=== PATIENT | female | born 1955 | race Caucasian/White ===

== ENCOUNTER 2020-05-24 08:27 | Outpatient (CLI) | payer OTHER, SELFPAY ==
--- NOTE | ~2020-05-24 | MM_ITS ---
EXAMINATION: MM screening deloris BI w yadi HISTORY: Screening mammogram TECHNIQUE: Craniocaudal and mediolateral oblique 3-D tomosynthesis images were obtained and synthetic 2-D images were generated. CAD analysis was submitted and interpreted. COMPARISON: 03/16/2019, 03/14/2018, 03/11/2017 bilateral digital screening mammogram examinations BREAST PARENCHYMAL COMPOSITION: There are scattered areas of fibroglandular density. FINDINGS: There is no evidence of suspicious mass, calcification, or architectural distortion to sugg est malignancy in either breast. There has been no suspicious interval change. IMPRESSION: 1. No mammographic evidence of malignancy. 2. Recommend routine screening mammography in one year. BI-RADS Category 1: Negative Reviewed, dictated and finalized at location A. 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
== END 2020-05-24 08:28 | disposition home or self-care (01) ==
LOC: ANHIMG 08:29
PROVIDERS: PCP Family Medicine; Visit Provider Obstetrics & Gynecology
DX: Z12.31 Encounter for screening mammogram for malignant neoplasm of breast (principal)
CPT/HCPCS: 77063; 77067

== ENCOUNTER 2021-08-11 11:33 | Outpatient (CLI) | payer OTHER, SELFPAY ==
--- NOTE | ~2021-08-11 | US_ITS ---
EXAMINATION: US abdomen complete EXAM DATE: 08/11/2021 12:53 INDICATION: Upper abdominal tenderness. TECHNIQUE: Multiple grayscale and Doppler images of the complete abdomen were obtained (by a technolo gist who performed the scan) and subsequently reviewed. There is no prior study for comparison. FINDINGS: The abdominal aorta is normal in caliber. Visualized portion IVC is patent. The pancreatic head a nd body are normal in appearance. The pancreatic tail is not visualized. There is echogenic liver parenchyma, hepatic steatosis. There are no focal liver lesions identified. There is no evidence of intrahepatic biliary duct dilation. Portal venous flow was seen in the he patopedal, normal direction and has normal Doppler waveform. Common bile duct measures 5 mm, which is normal. The gallbladder wall is normal in thickness, with ex pected amount of distention. No sonographic evidence of pericholecystic fluid. There is 5 mm choleli thiasis or less likely small polyp. Technologist performing exam reports patient did not demonstrate sonographic Valentin's sign. Please note that this sign is less reliable in patients who have receive d pain medication. Right kidney: There is normal contour and echogenicity. It measures 11.4 x 4.8 x 5.2 centimeters. There are no focal renal lesions identified. There is no hydronephrosis. Left kidney: There is normal contour and echogenicity. It measures 11.8 x 6.1 x 4.8 centimeters. Th ere is 1 cm cyst. There is no hydronephrosis. The spleen measures 9.8 centimeters and is morphologically normal. IMPRESSION: 1. Small cholelithiasis or polyp. 2. Hepatic steatosis. Reviewed, dictated and finalized at location B.
[2021-08-11 13:28] LABS: Basophils Absolute Auto 0.1 K/mm3 (0.0-0.1); Basophils Percent Auto 0.9 % (0.2-1.2); Eosinophils Absolute Auto 0.1 K/mm3 (0-0.3); Eosinophils Percent Auto 0.9 % (0-4.4); Hematocrit 42.8 % (37.0-47.0); Hemoglobin 13.5 g/dL (12.0-15.0); Immature Granulocyte Absolute 0.03 K/mm3 (0.00-0.031); Immature Granulocyte Percent A 0.4 % (0-0.5); Lymphocytes Absolute Auto 1.92 K/mm3 (0.9-3.2); Lymphocytes Percent Auto 27.6 % (18.3-44.2); Mean Corpuscular HGB Conc 31.5 g/dl (32-36); Mean Corpuscular Hemoglobin 28.4 pg (26-34); Mean Corpuscular Volume 90.1 fl (80-100); Mean Platelet Volume 9.3 fl (7.4-10.4); Monocytes Absolute Auto 0.6 K/mm3 (0.1-0.6); Monocytes Percent Auto 8.5 % (2.6-8.5); Neutrophils Absolute Auto 4.3 K/mm3 (1.3-6.7); Neutrophils Percent Auto 61.7 % (45.5-73.1); Platelet Count Result 329 k/mm3 (150-375); Red Blood Count 4.75 M/mm3 (4.2-5.4); Red Cell Distribution Width 14.3 % (11.5-14.5)
[2021-08-11 13:29] LABS: Bilirubin Urine Negative (Negative); Blood Urine Negative (Negative); Color Urine Yellow (Yellow); Glucose Urine UA Negative (Negative); Ketones Urine Negative (Negative); Leukocyte Esterase Ur Negative LEU/UL (NEGATIVE); Nitrate Urine Negative (Negative); Protein Urine Negative (Negative); Specific Grav Ur >= 1.030 (1.001-1.035); Urobilinogen Urine 0.2 mg/dL (<2.0); pH Urine 5.5 (5.0-9.0)
[2021-08-11 13:32] LABS: Add Urine Microscopic? YES; Appearance Urine Sl Cloudy (Clear); Mucus Urine Heavy /lpf; Squamous Epithelial Cell Urine Moderate /hpf (Few); WBC Urine 0-3 /hpf (0-3)
[2021-08-11 13:41] LABS: Amylase 82 U/L (30-110); Cholesterol 208 mg/dL (0-200); HDL Direct 54 mg/dL; Lipase 105 U/L (23-300); Triglycerides 288 mg/dL (<150)
[2021-08-11 13:43] LABS: Alanine Aminotransferase 15 U/L (4-35); Albumin Level 4.2 g/dL (3.5-5.1); Alkaline Phosphatase 57 U/L (38-126); Anion Gap 8 mmol/L (8-16); Aspartate Amino Transferase 24 U/L (14-36); Bilirubin,Total 0.3 mg/dL (0.2-1.3); Blood Urea Nitrogen 20 mg/dL (7-17); Carbon Dioxide 27 mmol/L (22-30); Chloride 103 mmol/L (98-107); Estimated Glomerular Filt Rate > 60; Glucose 86 mg/dL (65-110); Potassium 4.5 mmol/L (3.4-5.0); Sodium 138 mmol/L (137-145)
[2021-08-11 13:52] LABS: LDL Cholesterol Direct 100 mg/dL
[2021-08-13 06:37] LABS: GGT 17 U/L (3-65)
== END 2021-08-11 11:34 | disposition home or self-care (01) ==
PROVIDERS: PCP Family Medicine; Visit Provider Family Medicine
DX: R10.9 Unspecified abdominal pain (principal); E78.2 Mixed hyperlipidemia; K76.0 Fatty (change of) liver, not elsewhere classified
CPT/HCPCS: 36415; 76700; 80053; 80061; 81001; 82150; 82977; 83690; 85025

== ENCOUNTER 2021-08-18 11:09 | Outpatient (CLI) | payer OTHER, SELFPAY ==
--- NOTE | ~2021-08-18 | NM_ITS ---
EXAMINATION: NM hepatobiliary wo pharm DATE: 08/18/2021 13:38 INDICATION: Unspecified abdominal pain. COMPARISON: CT abdomen and pelvis 11/23/2011, ultrasound 08/11/2021 TECHNIQUE: 5.2 mCi Tc-99m mebrofenin (Choletec) was administered intravenously. Scintigraphic images of the abdomen were obtained for one hour. Then, the patient drank 8 oz Ensure, and imaging was cont inued for 60 minutes. FINDINGS: There is normal clearance of radiotracer from the blood pool. There is homogeneous tracer u ptake by the liver. Activity progresses to the bowel and gallbladder. Gallbladder ejection fraction (GBEF) was 20%. Note that with this technique, normal GBEF >= 33%. IMPRESSION: 1. Low gallbladder ejection fraction, consistent with gallbladder dysfunction and/or chronic cholecy stitis. Reviewed, dictated and finalized at location B. IMPRESSION: 1. Low gallbladder ejection fraction, consistent with gallbladder dysfunction and/or chronic cholecystitis.
== END 2021-08-18 11:10 | disposition home or self-care (01) ==
LOC: ANHIMG 11:19
PROVIDERS: PCP Family Medicine; Visit Provider Family Medicine
DX: R93.2 Abnormal findings on diagnostic imaging of liver and biliary tract (principal); R10.9 Unspecified abdominal pain
CPT/HCPCS: 78226; A9537

== ENCOUNTER 2021-09-09 07:41 | Outpatient (CLI) | payer OTHER, SELFPAY ==
--- NOTE | 2021-09-09 07:58 | ECG_ITS ---
Measurements Intervals [place] Rate: 85 P: 14 WV: 148 QRS: 16 QRSD: 89 T: 25 QT: 356 QTc: 424 Interpretive Statements SINUS RHYTHM DELAYED PRECORDIAL R/S TRANSITION BASELINE ARTIFACT- I, II, III, AVR, AVL, AVF BORDERLINE ECG Electronically Signed On 09-09-2021 8:15:01 CDT by Jameson Hernandez D.O.
== END 2021-09-09 07:42 | disposition home or self-care (01) ==
PROVIDERS: PCP Family Medicine; Visit Provider Surgery
DX: K80.10 Calculus of gallbladder with chronic cholecystitis without obstruction (principal); Z01.818 Encounter for other preprocedural examination; R94.31 Abnormal electrocardiogram [ECG] [EKG]
CPT/HCPCS: 36415; 86850; 86900; 86901; 93005

== ENCOUNTER 2021-09-11 01:33 | Day surgery (SDC) | payer OTHER, SELFPAY ==
[2021-09-08 12:18] VITALS: BMI 29.0
--- NOTE | 2021-09-08 12:20 | PC.NURSE ---
Report to the Outpatient Waiting Room, entrance under the green pavilion located off [facility], at time _1000_ on date _[id number]_. OR Time: _1200_. - You and your visitor will be asked a series of questions to screen for COVID 19 for your protection. - Only one visitor is allowed at this time. - The patient visitor is requested to leave or wait in car when not with patient. - A mask is required within the hospital. Patients may have clear liquids (water, carbonated beverages, clear teas, apple juice) until 3 hours prior to surgery with a maximum of 20 ounces. - No food from midnight until time of surgery Take the following medications with a SIP of water the morning of surgery: ____Paroxetene Medications to discontinue per physician __All vitamins and supplements Date to take last dose__Stop now.___ Please no make-up, nail vietnamese, hairspray, perfume, deodorant, or body powder the day of surgery. No jewelry (including any body piercings) or valuables the day of surgery, leave them at home. Please take a shower or bath the morning of, surgery with an antibacterial soap (Hebiclense or Chlorhexadine gluconate. Wear comfortable, loose fitting clothing. Children are encouraged to wear pajamas. - Jewelry must be removed prior to entering the operating room. Rings and piercings that are not removed may be cut off. - The hospital will not accept responsibility for valuables. - Please leave all valuables, including medications, at home the day of surgery. If you are going home after surgery, a licensed star route mail driver must drive you home. - NO public transportation without another adult. - We recommend that an adult stay with you for 24 hours following discharge. - We also recommend that you do not drive, make important decision, drink alcoholic beverages, or take any drugs that were not prescribed by your health care provider for at least 24 hours after your discharge time. For Pediatric surgeries, we recommend two adults accompany the child home (only one inside the building at this time). Follow any additional instructions given to you from your surgeon. If you or anyone in your household have experienced Covid symptoms in the past week, please notify your surgeon or the nurse liaison at the phone number below for possible testing. Telephone instructions given to __Patient___and asked if any additional questions and then verbalized understanding. Patient advised to call surgeon office or pre surgery nurse liaison [phone] if any additional questions.
[2021-09-11] VITALS (9 sets, daily range): BP systolic 128–145; BP diastolic 56–78; PULSE 75–95; RESP 15–20; TEMP 36–36.3; O2SAT 93–99
[2021-09-11] MEDS: ACETAMINOPHEN 500 MG TABLET 1000 MG PO (10:18)
--- NOTE | 2021-09-11 10:37 | WPDANESEPPF ---
Anes - Initial Pre Proc Eval Procedure: Operation Date: 09/11/21 12:00 Proposed Procedures p Laparoscopic Cholecystectomy - Thelma Holliday MD Date/Time: 09/11/21 10:37 Surgeon: Thelma Holliday MD Pre Op Diagnosis: Chronic Cholecystitis with Stones Patient Data Age: 66 Gender: F Height: 1.7 m Weight: 83.7 kg Last Vital Signs Temp 36.0 C L 09/11/21 09:57 Pulse 95 09/11/21 09:57 Resp 16 09/11/21 09:57 BP 135/78 09/11/21 09:57 Pulse Ox 99 09/11/21 09:57 Allergies Allergy/AdvReac Type Severity Reaction Status Date / Time clarithromycin Allergy Mild Abdominal Verified 09/11/21 10:12 Pain nitrofurantoin Allergy Mild Muscle Pain Verified 09/11/21 10:12 Penicillins Allergy Mild Dermatitis Verified 09/11/21 10:12 Home Medications Medication Instructions Recorded Confirmed Type aspirin 81 mg tablet,delayed 81 mg PO DAILY 03/15/19 09/11/21 History release lysine 500 mg tablet 500 mg PO DAILY 03/15/19 09/11/21 History fluticasone furoate 100 1 inh INHALATION DAILY #60 ea 09/03/20 09/11/21 Rx mcg-vilanterol 25 mcg/dose inhalation powder paroxetine HCl 20 mg tablet 20 mg PO QAM tablet 09/25/20 09/11/21 History albuterol sulfate 90 mcg/actuation 2 inh INHALATION Q4H PRN #18 g 03/05/21 09/08/21 Rx aerosol inhaler rabeprazole 20 mg tablet,delayed 20 mg PO DAILY #90 tablet 07/09/21 09/11/21 Rx release ascorbic acid (vitamin C) 500 mg 500 mg PO DAILY 08/25/21 09/11/21 History capsule cholecalciferol (vitamin D3) 25 25 mcg PO DAILY 08/25/21 09/11/21 History mcg (1,000 unit) capsule estradiol 2 mg tablet 2 mg PO DAILY 08/25/21 09/11/21 History magnesium 250 mg tablet 500 mg PO DAILY 08/25/21 09/11/21 History multivitamin 1 tablet PO DAILY 08/25/21 09/11/21 History potassium 99 mg tablet 99 mg PO DAILY tablet 08/25/21 09/11/21 History turmeric 400 mg capsule 400 mg PO QAM 08/25/21 09/11/21 History vit A 1,000 unit-C 60 mg-E 30 1 tablet PO QAM 08/25/21 09/11/21 History unit-zinc oxid-selenium AA-copper tablet vitamin A 2,400 mcg capsule 2,400 mcg PO DAILY 08/25/21 09/11/21 History fenofibrate 160 mg tablet 160 mg PO DAILY #90 tablet 09/03/21 09/11/21 Rx montelukast 10 mg PO QAM 09/08/21 09/11/21 History Patient hx anesthesia problems: none Family hx anesthesia problems: none Results Review: All pre-operative results and documents have been reviewed as part of the pre-operative evaluation. REPLACED BY [facility] Past Medical History Medical History Acute abdominal pain (~08/08/21) upper abdominal pain and tenderness. Abdominal ultrasound unremarkable kept for fatty 08/11/2021 with normal amylase 84 lipase 105 and normal liver enzymes. hepatobiliary scan 08/18/2021 with ejection fraction low at 20% with possible biliary dysfunction. Asthma Benign paroxysmal positional vertigo due to bilateral vestibular disorder BMI 29.0-29.9,adult Chronic anxiety Chronic sinusitis Chronic thoracic back pain Colon cancer screening Cologuard negative Fever blister Frontal headache Hypersomnia Insomnia Overweight (BMI 25.0-29.9) Rhinitis TIA (transient ischemic attack) Surgical History Surgical History History of partial hysterectomy [place] teeth extracted Family History Family History Father Family history of malignant neoplasm Patient's father is , Onset Age: 48 Sibling Patient's sister is , Onset Age: 21 Breast cancer Hodgkins disease Grandparent Breast cancer Social History Social History Smoking packs per day: 4 Smoking cigarettes per day: 80.0 Years smoked: 20 Smoking pack-years: 80.00 Smoking status: Former smoker Tobacco type: cigarettes Smoking end date: 09/08/98 Alcohol intake: former Substa
[2021-09-11] MEDS: LACTATED RINGERS 1,000 ML 30 ML IV CONT ×2 (10:46→12:48)
[2021-09-11] MEDS: KETOROLAC 15 MG/ML VIAL (*BKC) IV PUSH (10:46)
--- NOTE | 2021-09-11 11:51 | WPDHPUPDATE1 ---
History and Physical Update Update Date/Time: 09/11/21 11:51 History and Physical has been reviewed, including an updated exam of the patient. There are NO changes in the patient's condition. Risks, benefits, and alternatives have been discussed and questions answered. Patient agrees to proceed with procedure.
[2021-09-11] MEDS: ceFAZolin 2 GM/D5W 50 ML 2 GM/50 ML BAG IVPB (11:57)
[2021-09-11] MEDS: LIDO 1%/EPINEPHRINE/PF 1:200,000 30 ML VIAL XX (12:24)
--- NOTE | 2021-09-11 12:43 | W.PM.PROC2 ---
Procedure Note - Detailed Date of Procedure 09/11/21 Pre-op Diagnosis Chronic Cholecystitis with Stones Post-op Diagnosis Same Procedure Performed Laparoscopic cholecystectomy Surgeon Thelma Holliday MD Anesthesia General Indications 66 y/o F presenting c chronic cholecystitis, cholelithiasis Findings chronic cholecystitis Description of Procedure The patient was taken to the operating room placed in the supine position. After adequate induction of general anesthesia, the patient was prepped and draped in normal sterile fashion. A time-out was then performed to verify the patient's identity as well as the procedure being performed. I then made a 5 mm incision in the infraumbilical region. Through this, a Veress needle was placed into the peritoneal cavity and CO2 gas was then insufflated. After adequate pneumoperitoneum was achieved, the Veress needle was removed and a 5 mm optiview trocar was placed through this incision under direct visualization. I then placed the laparoscope through this trocar site and under direct visualization placed a further 12 mm subxiphoid port as well as 2 additional 5 mm ports in the right upper abdomen. The gallbladder was then identified and was noted to be moderately inflamed and distended. I was able to place a grasper at the dome of the gallbladder and this was retracted anterior and cephalad up over the liver. A 2nd retractor was then placed at the infundibulum and retracted laterally, this allowed visualization of the triangle of Calot. I then was able to visualize the cystic duct in its entirety from its proximal insertion into the gallbladder, to its distal junction with the common hepatic/common bile duct junction. At this point, I carefully skeletonized the proximal cystic duct with the [place] dissector. I then clipped and transected the proximal cystic duct. Next I visualized the cystic artery. Again the artery was skeletonized, clipped, and transected. I then used the Bovie cautery to take down the peritoneal attachments of the gallbladder off the liver bed. This was somewhat difficult given the amount of inflammation in the posterior space. Of note a small bleeder was encountered in the posterior space and controlled with both clip and cautery. Once the gallbladder specimen was completely detached, an endo-pouch was placed through the 12 mm port site. I then placed the gallbladder specimen into the Endo pouch and removed the endo-pouch from the 12 mm port site. The specimen will now be sent to pathology for further review. I then copiously irrigated the right upper quadrant. Some mild oozing was noted in the liver bed and this was controlled with the bovie cautery. Hemostasis was noted in the liver bed, the clips were noted to be in good position on both the cystic duct stump and the cystic artery stump. No other pathology was noted in the right upper quadrant. I then moved the laparoscope to the subxiphoid port. No iatrogenic injury or other pathology was noted in the lower abdomen. I then closed the 12 mm trocar site under direct visualization using the Sergio cone and 0 Vicryl suture. At this point, the abdomen was desufflated and all ports removed. All port sites were then closed with 4.O Monocryl subcuticular sutures. Dermabond was placed on each incision. The patient tolerated the procedure well, was extubated in the operating room postoperative and will be transferred to the recovery room in stable condition Estimated Blood Loss 20 Drains No Packing No Pathology Yes Complications No immediate complications Condition Stable Disposition PACU
[2021-09-11] MEDS: ONDANSETRON INJ 4 MG/2 ML VIAL IV PUSH (13:43)
[2021-09-11] MEDS: oxyCODONE HCL (*CRX) 5 MG TAB IR PO (14:21)
== END 2021-09-11 14:30 | disposition home or self-care (01) ==
PROVIDERS: PCP Family Medicine; Visit Provider Surgery
PROC: 0FT44ZZ Resection of Gallbladder, Percutaneous Endoscopic Approach (ICD-10-PCS; CPT 47562; principal; 2021-09-11 12:00)
DX: K80.10 Calculus of gallbladder with chronic cholecystitis without obstruction (principal); J45.909 Unspecified asthma, uncomplicated; K21.9 Gastro-esophageal reflux disease without esophagitis; Z79.51 Long term (current) use of inhaled steroids; Z79.82 Long term (current) use of aspirin; Z86.73 Personal history of transient ischemic attack (TIA), and cerebral infarction without residual deficits; Z87.891 Personal history of nicotine dependence
CPT/HCPCS: 47562; 88304; A9270; J0690; J1100; J1885; J2405; J2704; J2710; J3010; J7030; J7120

== ENCOUNTER 2022-06-30 09:11 | Outpatient (CLI) | payer OTHER, SELFPAY ==
--- NOTE | ~2022-06-30 | US_ITS ---
Abdominal Sonogram: Real-time sonographic imaging of the abdomen was performed. Clinical History: Left upper quadrant pain Findings: The liver appears echogenic, with no evidence of bile duct dilatation. There is a 2.9 x 2. 6 x 2.6 and a hypoechoic area near the gallbladder fossa, likely focal fatty sparing. Main portal vei n demonstrates normal direction of flow. The spleen is normal in size without evidence of focal lesio n. The gallbladder is absent, compatible prior cholecystectomy. The common bile duct measures 4 mm. The visualized pancreas, aorta, and IVC are unremarkable. The right kidney measures 11.4 cm in rashaun th and the left kidney measures 11.7 cm. There is no hydronephrosis or renal calculus. Impression: Diffuse fatty infiltration of liver. Probable focal area of fatty sparing adjacent to the gallbladder fossa. Pre and postcontrast MR shoul d be considered to further confirm this. Reviewed, dictated and finalized at [facility]. 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 Probable focal area of fatty sparing adjacent to the gallbladder fossa. Pre and postcontrast MR should be considered to further confirm this.
== END 2022-06-30 09:12 | disposition home or self-care (01) ==
PROVIDERS: PCP Family Medicine; Visit Provider Nurse Practitioner Family
DX: R10.12 Left upper quadrant pain (principal); K76.0 Fatty (change of) liver, not elsewhere classified; R11.0 Nausea; Z90.49 Acquired absence of other specified parts of digestive tract
CPT/HCPCS: 76700

== ENCOUNTER 2022-07-20 12:16 | Outpatient (CLI) | payer OTHER, SELFPAY ==
--- NOTE | ~2022-07-20 | MR_ITS ---
EXAMINATION: MR abdomen wo/w con DATE: 07/20/2022 14:06 INDICATION: Hypoechoic hepatic lesion on prior ultrasound TECHNIQUE: Magnetic resonance imaging (MRI) of the abdomen was performed without and with 17 mL Multi arianna intravenous contrast. Sequences included coronal T2-weighted SS-FSE, coronal and axial FS 2D-F IESTA, axial STIR FSE, axial T2-weighted SS-FSE, axial T2-weighted FS SS-FSE, axial diffusion-weighte d SE, axial dual-echo T1-weighted FSPGR, and axial and coronal T1-weighted LAVA. Postcontrast axial T 1-weighted LAVA images were obtained in a time course. Postcontrast coronal T1-weighted LAVA images w ere obtained. COMPARISON: Ultrasound dated 06/22/2022 FINDINGS: Heart size is normal. No pericardial or pleural effusion. Gallbladder is not visualized and there are foci of susceptibility artifact at the gallbladder fossa likely relate to cholecystectomy clips. The re is prominent diffuse hepatic steatosis with signal loss on opposed phase imaging. No correlate maisha ntified for the hypoechoic lesion of concern on prior ultrasound. Upon review of prior ultrasound arabella ges the lesion lies along side the capsule, indeterminate whether within or along side the liver this could potentially represent artifact of a fluid-filled loop of bowel along side the liver. No intra or extrahepatic biliary ductal dilation. There are a few small T2 hyperintense nonenhancing bilateral renal cysts, the largest on the left measuring up to 1.2 cm. Pancreas, spleen and bilateral adrenal glands are normal. Visualized portion of the bowels are unremarkable. No pathologically enlarged abdo rubina lymphadenopathy. Mild thoracolumbar dextrocurvature with mild spondylosis. Visualized bone marco ow signal is normal throughout. IMPRESSION: 1. Diffuse hepatic steatosis. No correlate identified for the hypoechoic lesion of concern on prior u ltrasound which may have represented artifact of a fluid-filled loop of bowel abutting the liver. 2. Status post cholecystectomy. No intra or extrahepatic biliary ductal dilation. Reviewed, dictated and finalized at location A. IMPRESSION: 1. Diffuse hepatic steatosis. No correlate identified for the hypoechoic lesion of concern on prior ultrasound which may have represented artifact of a fluid- filled loop of bowel abutting the liver. 2. Status post cholecystectomy. No intra or extrahepatic biliary ductal dilatio n.
== END 2022-07-20 12:17 | disposition home or self-care (01) ==
PROVIDERS: PCP Family Medicine; Visit Provider Family Medicine
DX: R93.2 Abnormal findings on diagnostic imaging of liver and biliary tract (principal); K76.0 Fatty (change of) liver, not elsewhere classified; Z90.49 Acquired absence of other specified parts of digestive tract
CPT/HCPCS: 74183; A9577

== ENCOUNTER 2022-07-28 01:53 | Day surgery (SDC) | payer OTHER, SELFPAY ==
[2022-07-16 14:10] VITALS: BMI 29.3
[2022-07-28 06:40] VITALS: BP 135/90; PULSE 91; RESP 18; TEMP 36.5; O2SAT 99; BMI 28.0
[2022-07-28] MEDS: LACTATED RINGERS 1,000 ML 150 ML IV CONT (07:03)
--- NOTE | 2022-07-28 07:55 | WPDANESEPPF ---
Anes - Initial Pre Proc Eval Procedure: Operation Date: 07/28/22 08:00 Proposed Procedures p Colonoscopy - Zeke Schaeffer MD Date/Time: 07/28/22 07:55 Surgeon: Zeke Schaeffer MD Pre Op Diagnosis: positive cologuard Patient Data Age: 66 Gender: F Height: 1.7 m Weight: 81.2 kg Last Vital Signs Temp 97.7 F 07/28/22 06:40 Pulse 91 07/28/22 06:40 Resp 18 07/28/22 06:40 BP 135/90 07/28/22 06:40 Pulse Ox 99 07/28/22 06:40 O2 Del Method Room Air 07/28/22 06:40 Allergies Allergy/AdvReac Type Severity Reaction Status Date / Time clarithromycin Allergy Mild Abdominal Verified 07/28/22 06:46 Pain nitrofurantoin Allergy Mild Muscle Pain Verified 07/28/22 06:46 Penicillins Allergy Mild Dermatitis Verified 07/28/22 06:46 Home Medications Medication Instructions Recorded Confirmed Type aspirin 81 mg tablet,delayed 81 mg PO DAILY 03/15/19 07/28/22 History release (Adult Low Dose Aspirin) lysine 500 mg tablet (L-Lysine) 500 mg PO DAILY 03/15/19 07/28/22 History paroxetine HCl 20 mg tablet (Paxil) 20 mg PO QAM 09/25/20 07/28/22 History ascorbic acid (vitamin C) 500 mg 500 mg PO DAILY 08/25/21 07/28/22 History capsule estradiol 2 mg tablet 2 mg PO DAILY 08/25/21 07/28/22 History magnesium 250 mg tablet 500 mg PO DAILY 08/25/21 07/28/22 History multivitamin 1 tablet PO DAILY 08/25/21 07/28/22 History potassium 99 mg tablet 99 mg PO DAILY 08/25/21 07/28/22 History turmeric 400 mg capsule 400 mg PO QAM 08/25/21 07/28/22 History vitamin A 2,400 mcg capsule 2,400 mcg PO DAILY 08/25/21 07/28/22 History fenofibrate 160 mg tablet 160 mg PO DAILY #90 tabs 09/03/21 07/28/22 Rx albuterol sulfate 90 mcg/actuation 2 inh inhalation Q4-6H PRN 12/15/21 07/28/22 Rx aerosol inhaler shortness of breath or wheezing 90 days #25.5 grams fluticasone furoate 200 1 inh inhalation Q24H #180 ea 03/06/22 07/28/22 Rx mcg-vilanterol 25 mcg/dose inhalation powder (Breo Ellipta) cholecalciferol (vitamin D3) 25 1,000 unit PO DAILY 03/09/22 07/28/22 History mcg (1,000 unit) capsule meclizine 25 mg tablet 25 mg PO TID PRN dizziness #90 tabs 03/09/22 07/28/22 Rx rizatriptan 10 mg disintegrating See Rx Instructions PO .COMPLEX 03/09/22 07/28/22 Rx tablet (Maxalt-[employer]) #30 tabs valacyclovir 1 gram tablet 2,000 mg PO BID PRN fever blister 03/09/22 07/28/22 Rx #40 tabs vit C 250 mg-vit E 90 mg-zinc 40 1 tablet PO BID #180 caps 05/20/22 07/28/22 Rx mg-copper 1 [id number] capsule (PreserVision AREDS-2) dicyclomine 20 mg tablet 20 mg PO TID PRN abdominal pain 06/24/22 07/28/22 Rx #90 tabs montelukast 10 mg tablet See Rx Instructions .Route 06/24/22 07/28/22 Rx .COMPLEX #90 tabs rabeprazole 20 mg tablet,delayed 20 mg PO DAILY #90 tabs 07/20/22 07/28/22 Rx release (AcipHex) Patient hx anesthesia problems: none Family hx anesthesia problems: none Results Review: All pre-operative results and documents have been reviewed as part of the pre-operative evaluation. [facility] Past Medical History Medical History (Updated 07/01/22 @ 07:47 by Keith Ziegler MD) Abnormal ultrasound of liver (06/30/22) 2.9 x 2.6 x 2.6 hypoechoic area near gallbladder fosa on abdominal ultrasound 06/30/2022. Acute abdominal pain (~08/08/21) upper abdominal pain and tenderness. Abdominal ultrasound unremarkable kept for fatty 08/11/2021 with normal amylase 84 lipase 105 and normal liver enzymes. hepatobiliary scan 08/18/2021 with ejection fraction low at 20% with possible biliary dysfunction. Acute non-recurrent maxillary sinusitis Asthma Benign paroxysmal positional vertigo due to bilateral vestibular disorder BMI 28.0-28.9,adult BMI 29.0-29.9,adult Chronic anxiety Chronic sinusitis Chronic thoracic back pain Colon cancer screening Cologuard negative. Cologuard screening 03/10/2022 was positive. COVID-19 (12/11/21) Diarrhea Fever blister Frontal headache Hepatic steat
--- NOTE | 2022-07-28 07:58 | PM.HPGS ---
History of Present Illness History of Present Illness Consent: Risks, benefits, and alternatives have been discussed and questions answered. Patient agrees to proceed with procedure. Chief complaint: positive cologuard Narrative: Lanie Steele is a 66 year old female here for first colonoscopy, had + cologuard Review of Systems Constitutional: Constitutional: Denies headache(s) and Denies weakness Eyes: Eyes: Denies blurry vision ENT: Reports Normal hearing present, Denies headache(s) and Denies neck pain Cardiovascular: Cardiovascular: Denies chest pain and Denies dyspnea Respiratory: Respiratory: Denies dyspnea Gastrointestinal: Gastrointestinal: Reports no additional gastrointestinal complaints Genitourinary: Genitourinary: Denies dysuria Musculoskeletal: Musculoskeletal: Denies neck pain Integumentary/Breasts: Skin/Breast: Denies dry skin Neurologic: Reports Normal hearing present, Denies headache(s) and Denies weakness Psychiatric: Psychiatric: Denies anxiety Endocrine: Endocrine: Denies change in body appearance Hematologic/Lymphatic: Hematologic/Lymphatic: Denies easy bleeding Allergic/Immunologic: Allergic/Immunologic: Denies urticaria PMFSH Past Medical History Medical History (Updated 07/01/22 @ 07:47 by Keith Ziegler MD) Abnormal ultrasound of liver (06/30/22) 2.9 x 2.6 x 2.6 hypoechoic area near gallbladder fosa on abdominal ultrasound 06/30/2022. Acute abdominal pain (~08/08/21) upper abdominal pain and tenderness. Abdominal ultrasound unremarkable kept for fatty 08/11/2021 with normal amylase 84 lipase 105 and normal liver enzymes. hepatobiliary scan 08/18/2021 with ejection fraction low at 20% with possible biliary dysfunction. Acute non-recurrent maxillary sinusitis Asthma Benign paroxysmal positional vertigo due to bilateral vestibular disorder BMI 28.0-28.9,adult BMI 29.0-29.9,adult Chronic anxiety Chronic sinusitis Chronic thoracic back pain Colon cancer screening Cologuard negative. Cologuard screening 03/10/2022 was positive. COVID-19 (12/11/21) Diarrhea Fever blister Frontal headache Hepatic steatosis Hypersomnia Insomnia LUQ abdominal pain Migraine without aura and without status migrainosus, not intractable Nausea Rhinitis TIA (transient ischemic attack) Surgical History Surgical History (Updated 06/24/22 @ 11:07 by Starr Quiroz NP) History of partial hysterectomy Hx laparoscopic cholecystectomy Laparoscopic Cholecystectomy performed 09/11/2021 S/P cholecystectomy Cut Off teeth extracted Family History Family History Father Family history of malignant neoplasm Patient's father is , Onset Age: 48 Sibling Patient's sister is , Onset Age: 21 Breast cancer Hodgkins disease Grandparent Breast cancer Social History Social History (Reviewed 06/24/22 @ 10:33 by Mary Durbin [facility]) Smoking packs per day: 0.5 Smoking cigarettes per day: 10.0 Years smoked: 20 Smoking pack-years: 10.00 Smoking status: Former smoker Tobacco type: cigarettes Smoking end date: 05/03/97 Alcohol intake: never Substance use: never Substance use type: does not use Lack of Transportation: No Lack of Food: Never True Current Housing: I Have Housing Concerned About Future Housing: No Difficulty Paying Gas/Electric Bills: No Difficulty Paying for Meds: No Currently Unemployed: No Education: High School Diploma/GED Difficulty w/ Childcare or Family Care: No Living arrangements: with family Occupation/Education: retired Spiritual care concerns: No Meds Home Medications and Allergies Home Medications Medication Instructions Recorded Confirmed Type aspirin 81 mg tablet,delayed 81 mg PO DAILY 03/15/19 07/28/22 History release (Adult Low Dose Aspirin) lysine 500 mg tablet (L-Lysine) 500 mg PO DAILY 03/15/19 07/28/22 History paroxeti
[2022-07-28 08:36] VITALS: BP 114/71; PULSE 89; RESP 25; O2SAT 95
[2022-07-28 08:46] VITALS: BP 116/71; PULSE 85; RESP 19; O2SAT 96
[2022-07-28 08:56] VITALS: BP 126/68; PULSE 86; RESP 16; O2SAT 100
== END 2022-07-28 09:04 | disposition home or self-care (01) ==
PROVIDERS: PCP Family Medicine; Visit Provider Internal Medicine Gastroenterology
PROC: 0DJD8ZZ Inspection of Lower Intestinal Tract, Via Natural or Artificial Opening Endoscopic (ICD-10-PCS; CPT 45378; principal; 2022-07-28 08:00)
DX: R19.5 Other fecal abnormalities (principal); D12.3 Benign neoplasm of transverse colon; D12.5 Benign neoplasm of sigmoid colon; K64.8 Other hemorrhoids; J45.909 Unspecified asthma, uncomplicated; F41.9 Anxiety disorder, unspecified; Z86.73 Personal history of transient ischemic attack (TIA), and cerebral infarction without residual deficits; Z79.82 Long term (current) use of aspirin; Z79.51 Long term (current) use of inhaled steroids; Z87.891 Personal history of nicotine dependence
CPT/HCPCS: 45385; 88305; J2001; J2704; J7120

== ENCOUNTER → 2024-08-10 11:49 | Outpatient (CLI) | payer MEDICARE, OTHER, SELFPAY ==
--- NOTE | ~2024-08-10 | XR_ITS ---
AP and oblique views of the left ribs, and PA and lateral chest radiographs Clinical History: Pain Findings: No rib fracture is seen. Osseous alignment is anatomic. Lungs are clear, aside from calcifi ed right upper lobe granuloma, without focal consolidation or pleural effusion. Cardiomediastinal con tour is within normal limits. Soft tissues are unremarkable. Impression: No rib fracture is seen. No significant pulmonary abnormality. Reviewed, dictated and finalized at location . Impression: No rib fracture is seen. No significant pulmonary abnormality.
--- OUTSIDE RECORDS SUMMARY | 2024-08-10 12:32 | XMS_ITS | Clinical Summary ---
Author Organization [facility] Address [address] [place] [address] Care Team Providers Care Video Control Operator Name Role Phone Keith Ziegler MD Primary Care Provider [phone] Source Comments [facility],non-owned Affiliates and Associated Physician Practices is amultiple site organization consisting of ambulatory clinics and hospital sitesin [place], [place], [place] and [place]. This disclosure is being madepursuant to the Care Everywhere program and may not contain all information available regarding this patient. Last updated 18.[facility] [employer] Social History Tobacco Use Types Packs/Day Years Used Date Smoking Tobacco: Never Assessed Sex and Gender Information Value Date Recorded Sex Assigned at Not on file Gender Identity Not on file Sexual Orientation Not on file Plan of Treatment Health Maintenance Due Date Last Done Comments BONE DENSITY TESTING 1957 COLOGUARD (AGES 45-75) - COL ON CA SCREENING 1957 COLON MONITORING 1957 COLONOSCOPY - COLON CA SCREENING 1957 CT COLONOGRAPHY - COLON CA SCREENING 1957 Colorectal Cancer Screening 1957 FIT - COLON CA SCREENING 1957 FLEX SIG - COLON CA SCREENING 1957 LIPID TESTING 1957 MAMMOGRAM 1957 HEPATITIS C SCREENING 08/19/1975 DTAP/TDAP/TD VACCINES (1 - Tdap) 1976 PNEUMOCOCCAL VACCINE 50+ (1 of 1 - PCV) 08/24/2007 ZOSTER VACCINE (1 of 2) 08/24/2007 COVID-19 VACCINE (1 - 2023-2 5 season) 2024 DEPRESSION SCREENING 05/03/2024 INFLUENZA VACCINE (Season Ended) 2025 Respiratory Syncytial Virus (RSV) Vaccine Pt: or over 60 yrs (1 - 1-dose 75+ series) 2032 HEPATITIS B VACCINE Aged Out No longe r eligible based on patient's age to complete this topic HIB VACCINE Aged Out No longer eligi ble based on patient's age to complete this topic HPV VACCINE Aged Out No longer eligi ble based on patient's age to complete this topic MENINGOCOCCAL (Group B) VACC INE SHARED DECISION-MAKING Aged Out No longer eligibl e based on patient's age to complete this topic MENINGOCOCCAL GROUPS A/C/Y/W VACCINE Aged Out No longer eligible b ased on patient's age to complete this topic Care Teams Video Control Operator Relationship Specialty Start Date End Date Keith Ziegler MD [address] [address] PCP - General 09/18/21
== END ==
PROVIDERS: PCP Family Medicine; Visit Provider Family Medicine
DX: R07.81 Pleurodynia (principal)
CPT/HCPCS: 71046; 71100

== ENCOUNTER 2024-09-04 07:50 | Outpatient (CLI) | payer MEDICARE, OTHER, SELFPAY ==
--- NOTE | ~2024-09-04 | CT_ITS ---
Clinical Indication: Pleurodynia CT Scan of the Chest and Abdomen without Contrast: Technique: Contiguous sections were acquired throughout the chest and abdomen, without IV contrast ad ministration. Dose reduction technique was used on this scan by utilizing automated exposure control and iterative reconstruction technique. The dose-length product (DLP) was 566.18 mGy-cm. Findings: There is no evidence of any significant mediastinal, hilar or axillary lymphadenopathy. The mediastin al soft tissues appear normal. There is no evidence of pleural or pericardial effusion. The lungs are clear, aside from right upper lobe calcified granuloma. Possible diffuse hepatic steatosis. Cholecystectomy clips are present. The spleen, pancreas, adrenals and kidneys are within normal limits. No evidence of aortic aneurysm. No lymphadenopathy. Visualized bowel loops are unremarkable. No ascites. Impression: No acute abnormality. No definite etiology for chest pain. Probable diffuse hepatic steatosis. Reviewed, dictated and finalized at [facility]. Impression: No acute abnormality. No definite etiology for chest pain. Probable diffuse hepatic steatosis.
--- OUTSIDE RECORDS SUMMARY | 2024-09-04 07:57 | XMS_ITS | Clinical Summary ---
Author Organization [facility] Address [address] [place] [address] Care Team Providers Care Cuff Maker Name Role Phone Keith Ziegler MD Primary Care Provider [phone] Source Comments [facility],non-owned Affiliates and Associated Physician Practices is amultiple site organization consisting of ambulatory clinics and hospital sitesin [place], [place], [place] and [place]. This disclosure is being madepursuant to the Care Everywhere program and may not contain all information available regarding this patient. 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
== END 2024-09-04 07:51 | disposition home or self-care (01) ==
PROVIDERS: PCP Family Medicine; Visit Provider Family Medicine
DX: R07.81 Pleurodynia (principal); R93.89 Abnormal findings on diagnostic imaging of other specified body structures
CPT/HCPCS: 71250; 74150

== ENCOUNTER 2025-04-30 10:06 | Emergency (ER) | payer MEDICARE, OTHER, SELFPAY ==
--- NOTE | ~2025-04-30 | CT_ITS ---
. EXAMINATION: CT facial bones w con DATE: 04/30/2025 13:05 INDICATION: Left facial pain TECHNIQUE: Computed tomography (CT) of the facial bones and maxillofacial region was performed . with 100 mL Omnipaque-350 intravenous contrast. Coronal reconstructions were obtained. Automated exposure control and iterative reconstruction technique were employed. The dose-length product was 415.25 mGy -cm. COMPARISON: None. FINDINGS: No maxillofacial fractures. There is streak artifact associated with multiple bilateral dental restorations. Small periapical lucencies at the posterior most left and right mandibular molars with no erosion through the overlying cortex or evident subperiosteal abscess. Changes of bilateral intraocular lens replacement. Orbits are otherwise normal. Mild mucoperiosteal thickening in the bilateral ethmoid and maxillary sinuses. Bilateral parotid and submandibular glands the visualized thyroid gland are normal. There are multiple mildly prominent but still normal-sized bilateral submandibular and jugular chain lymph nodes. 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 Mastoid air cells and middle ear cavities are clear. Vasculature is unremarkable. Parapharyngeal and prevertebral soft tissues are unremarkable. Normal epiglottis. No abscess or abnormal masses identified. Mild cervical spondylosis. IMPRESSION: 1. Small periapical lucencies at both the left and right posterior most mandibular molars without evident associated cortical erosion or subperiosteal abscesses. 2. Likely reactive bilateral mild submandibular and jugular chain lymphadenopathy. Reviewed, dictated and finalized at location A. [employer] IMPRESSION: 1. Small periapical lucencies at both the left and right posterior most mandibu lar molars without evident associated cortical erosion or subperiosteal abscess es. 2. Likely reactive bilateral mild submandibular and jugular chain lymphadenopat hy.
[2025-04-30 10:11] VITALS: BP 157/81; PULSE 92; RESP 18; TEMP 36.9; O2SAT 100
--- OUTSIDE RECORDS SUMMARY | 2025-04-30 10:31 | XMS_ITS | Patient Health Record ---
Author Organization [facility] [employer] [facility] Address [address] [place] [address] Care Team Providers Care Victorian Literature Professor Name Role Phone Eliecer Seay Unavailable [phone] Reason For Referral No Information Medications Medication SIG (Take, Route, Frequency, Duration) Notes Start Date End Date Status ALPRAZolam 0.25 MG Tablet Oral 08/27/2022 Active busPIRone HCl 7.5 MG Tablet Oral 08/27/2022 Active hydrOXYzine HCl 10 MG Tablet Oral 08/27/2022 Active PARoxetine HCl 30 MG Tablet Oral 08/27/2022 Active QUEtiapine Fumarate 25 MG Tablet Oral 08/27/2022 Active Social History Social History Additional Details Category Social Info Options Details Migrated Social History Migrated Social History Alcohol Intake: None 08/27/2022,Tobacco Years: Former smoker 08/27/2022,Smoking Status: 30 08/27/2022 Plan Of Treatment No Information Insurance Providers Payer Name Payer Address Payer Phone Subscriber Number Group Number Insured Name Patient Relationship to Insured Coverage Start Date Coverage End Date [address] [address] [place] [phone] [id number] ADIN NORRIS Self - patient is the insured Medicare-I l Medicare [address] [place] [address] [id number] ADIN NORRIS Self - patient is the insured Medical (General) History Surgical History Surgery Date(Month/Year) Hysterectomy ([id number]) Removal of gallbladder (38830) Extraction of cataract ([id number])
--- OUTSIDE RECORDS SUMMARY | 2025-04-30 10:31 | XMS_ITS | Clinical Summary ---
Author Organization [facility] Address [address] [address] Care Team Providers Care African Studies Professor Name Role Phone Keith Ziegler MD Primary Care Provider [phone] Source Comments [facility],non-owned Affiliates and Associated Physician Practices is amultiple site organization consisting of ambulatory clinics and hospital sitesin [place], [place], [place] and [place]. This disclosure is being madepursuant to the Care Everywhere program and may not contain all information available regarding this patient. 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
--- OUTSIDE RECORDS SUMMARY | 2025-04-30 12:10 | XMS_ITS | Clinical Summary ---
Author Organization [facility] Address [address] [place] [address] Care Team Providers Care Therapeutic Recreation Director Name Role Phone Keith Ziegler MD Primary Care Provider [phone] Source Comments [facility],non-owned Affiliates and Associated Physician Practices is amultiple site organization consisting of ambulatory clinics and hospital sitesin [place], [place], [place] and [place]. This disclosure is being madepursuant to the Care Everywhere program and may not contain all information available regarding this patient. 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
[2025-04-30 12:27] LABS: Hematocrit 45.0 % (37.0-47.0); Hemoglobin 14.4 g/dL (12.0-15.0); Immature Granulocyte Percent A 0.4 % (0-0.5); Lymphocytes Absolute Auto 1.67 K/mm3 (0.9-3.2); Mean Corpuscular HGB Conc 32.0 g/dl (32-36); Mean Corpuscular Hemoglobin 28.1 pg (26-34); Mean Corpuscular Volume 87.9 fl (80-100); Nucleated Red Blood Cells Absolute Auto 0.000 K/mm3 (0.0-0.012); Nucleated Red Blood Cells Perc 0.0 % (0.0-0.2); Platelet Count Result 304 k/mm3 (150-375); Red Blood Count 5.12 M/mm3 (4.2-5.4); White Blood Count 8.2 K/mm3 (4.5-10.0)
--- NOTE | 2025-04-30 12:46 | ED.GENADULT ---
HPI - General Adult General Chief complaint: Dental/Oral Stated complaint: JAW PAIN, SWELLING, CAN'T OPEN MOUTH HX TMJ Time Seen by Provider: 04/30/25 11:28 History of Present Illness HPI narrative: 69-year-old female present to the emergency department for evaluation for left-sided dental abscess. Patient did have follow-up with her dentist last week and was started on a Z-Darshan then switched to doxycycline and then on Wednesday patient was switched to clindamycin. Patient states that her pain has improved patient is still having some facial swelling. Patient does not have follow-up for dentist until after the holiday. Patient does report history of TMJ and states she does have tightness of the left drawl. His primary complaint is submandibular pain on the left lateral jaw. Patient denies any difficulty breathing or swallowing. Patient is no distress at time of evaluation. Related Data Home Medications ?Medication ?Instructions ?Recorded ?Confirmed ?Last Taken ?Type aspirin 81 mg tablet,delayed 81 mg PO DAILY 03/15/19 02/20/25 09/05/21 History release (Adult Low Dose Aspirin) lysine 500 mg tablet (L-Lysine) 500 mg PO DAILY 03/15/19 02/20/25 09/05/21 History ascorbic acid (vitamin C) 500 mg 500 mg PO DAILY 08/25/21 02/20/25 09/05/21 History capsule magnesium 250 mg tablet 500 mg PO DAILY 08/25/21 02/20/25 09/05/21 History multivitamin 1 tablet PO DAILY 08/25/21 02/20/25 09/05/21 History potassium 99 mg tablet 99 mg PO DAILY 08/25/21 02/20/25 09/05/21 History vitamin A 2,400 mcg capsule 2,400 mcg PO DAILY 08/25/21 02/20/25 09/05/21 History cholecalciferol (vitamin D3) 25 1,000 unit PO DAILY 03/09/22 02/20/25 Unknown History mcg (1,000 unit) capsule Allergies Allergy/AdvReac Type Severity Reaction Status Date / Time clarithromycin Allergy Mild Abdominal Verified 04/30/25 11:34 Pain nitrofurantoin Allergy Mild Muscle Pain Verified 04/30/25 11:34 Penicillins Allergy Mild Dermatitis Verified 04/30/25 11:34 Review of Systems Review of Systems: All systems reviewed & are unremarkable except as noted in HPI and below PMFSH Past Medical History Medical History (Updated 04/30/25 @ 14:20 by Brady Darnell MD) Acute bronchitis Seasonal allergic rhinitis allergy testing was negative Chronic nonallergic rhinitis Positive colorectal cancer screening using Cologuard test COVID-19 (12/11/21) Encounter for surgical aftercare following surgery on the digestive system Acute abdominal pain (~08/08/21) upper abdominal pain and tenderness. Abdominal ultrasound unremarkable kept for fatty 08/11/2021 with normal amylase 84 lipase 105 and normal liver enzymes. hepatobiliary scan 08/18/2021 with ejection fraction low at 20% with possible biliary dysfunction. Colon cancer screening Cologuard negative. Cologuard screening 03/10/2022 was positive. Abnormal ultrasound of liver (06/30/22) 2.9 x 2.6 x 2.6 hypoechoic area near gallbladder fosa on abdominal ultrasound 06/30/2022. Chronic cholecystitis with calculus Postmenopause Rib pain on left side X-ray ribs and chest on 08/10/[address] of the chest and abdomen on 09/04/2024 was unremarkable. Breast cancer screening BMI 26.0-26.9,adult (08/02/22) Polyp of colon (07/28/22) 5 mm Tubular adenoma of the transverse colon, 2 tubulovillous adenoma in the sigmoid colon on 07/28/2022. Nausea Hepatic steatosis Diffuse fatty liver on CT on 09/04/2024. BMI 28.0-28.9,adult Migraine without aura and without status migrainosus, not intractable Acute non-recurrent maxillary sinusitis Diarrhea TIA (transient ischemic attack) Asthma Hypersomnia Insomnia Fever blister Benign paroxysmal positional vertigo due to bilateral vestibular disorder Chronic anxiety BMI 29.0-29.9,adult Chronic sinusitis Frontal headache Rhinitis Chronic thoracic back pain Surgical History Surgical History S/P cholecystectomy Hx laparoscopic cholecystectomy Laparoscopic Cholecystectomy performed 09/11/2021 [place] teeth extracted History of partial hysterectomy Family History Family History Father Family history of malignant neoplasm Patient's father is , Onset Age: 48 Sibling Patient's sister is , Onset Age: 21 Breast cancer Hodgkins disease Grandparent Breast cancer Social History Social History Smoking packs per day: 0.5 Smoking cigarettes per day: 10.0 Years smoked: 20 Smoking pack-years: 10.00 Smoking status: Former smoker Tobacco type: cigarettes Smoking end date: 05/03/97 Alcohol intake: never Substance use: never Substance use type: does not use Lack of Transportation: No Lack of Food: Never True Current Housing: I Have Housing Concerned About Future Housing: No Difficulty Paying Gas/Electric Bills: No Difficulty Paying for Meds: No Currently Unemployed: No Education: High School Diploma/GED Difficulty w/ Childcare or Family Care: No Living arrangements: with family Occupation/Education: retired Spiritual care concerns: No Exam Narrative: APPEARANCE: Well appearing, no pain, no distress, well-nourished. HEAD: normocephalic, atraumatic. EYES: PERRLA/EOMI, conjunctivae clear. NOSE: Normal no drainage EARS:TMS clear with good light reflex. THROAT: Pharynx clear, no exudate. NECK: Left lower mandibular swelling with no erythema, no fluctuance, no midline swelling and no crepitus RESPIRATORY: Airway patent, respirations nonlabored. Clear to auscultation bilaterally, no rales, rhonchi, wheezing. CARDIOVASCULAR: Regular rate and rhythm without murmurs rubs or gallops. ABDOMINAL: Soft, nontender, nondistended, normal bowel sounds MUSCULOSKELETAL: Moves all extremities. Strength/ROM intact, No edema, No calf tenderness. NEURO: Alert. Cranial nerves II through XII intact. Good gait. Good coordination SKIN: Warm, dry. Normal Color Course Vital Signs Vital signs: Vital Signs Temperature 98.5 F 04/30/25 10:11 Pulse Rate 92 04/30/25 10:11 Respiratory Rate 18 04/30/25 10:11 Blood Pressure 157/81 H 04/30/25 10:11 Pulse Oximetry 100 04/30/25 10:11 Oxygen Delivery Room Air 04/30/25 10:11 Temperature 98.5 F 04/30/25 10:11 Pulse Rate 90 04/30/25 14:38 Respiratory Rate 18 04/30/25 14:38 Blood Pressure 132/88 04/30/25 14:38 Pulse Oximetry 99 04/30/25 14:38 Oxygen Delivery Room Air 04/30/25 10:11 [facility] Narrative Medical decision making narrative: 69-year-old female presents to the emergency department for evaluation for left submandibular swelling. Patient has been on multiple antibiotics in this still on clindamycin. Patient is afebrile with no leukocytosis and hemoglobin of 14.4. Patient has no acute abnormalities on her CMP. No external evidence of cellulitis and patient does have some lymphadenopathy but no fluctuance palpated. Patient's CT was ordered and does show some small periapical lucencies without evident associated cortical erosion or subperiosteal abscesses. Patient was updated on the results of workup and patient was comfortable plan for discharge and close follow-up. Patient will be started on additional muscle relaxants to help with the suspected TMJ. Differential Diagnosis Differential Diagnosis: Dental abscess, facial cellulitis, trismus, Lab Data [facility] Lab Attestation statement: I personally reviewed the patient's lab results. 04/30/25 12:21 04/30/25 12:21 Labs: Lab Results 04/30/25 Range/Units 12:21 WBC 8.2 (4.5-10.0) K/mm3 RBC 5.12 (4.2-5.4) M/mm3 Hgb 14.4 (12.0-15.0) g/dL Hct 45.0 (37.0-47.0) % MCV 87.9 (80-100) fl MCH 28.1 (26-34) pg MCHC 32.0 (32-36) g/dl RDW 13.6 (11.5-14.5) % Plt Count 304 (150-375) k/mm3 MPV 8.8 (7.4-10.4) fl Immature Gran % (Auto) 0.4 (0-0.5) % Neut % (Auto) 70.9 (45.5-73.1) % Lymph % (Auto) 20.4 (18.3-44.2) % [place] % (Auto) 6.8 (2.6-8.5) % Eos % (Auto) 0.9 (0-4.4) % Baso % (Auto) 0.6 (0.2-1.2) % Lymph # (Auto) 1.67 (0.9-3.2) K/mm3 [place] # (Auto) 0.6 (0.1-0.6) K/mm3 Eos # (Auto) 0.1 (0-0.3) K/mm3 Baso # (Auto) 0.1 (0.0-0.1) K/mm3 Abs Immat Gran (auto) 0.03 (0.00-0.031) K/mm3 Absolute Neuts (auto) 5.8 (1.3-6.7) K/mm3 Absolute Nucleated RBC 0.000 (0.0-0.012) K/mm3 Nucleated RBC % 0.0 (0.0-0.2) % Sodium 140 (137-145) mmol/L Potassium 4.9 (3.4-5.0) mmol/L Chloride 106 (98-107) mmol/L Carbon Dioxide 24 (22-30) mmol/L Anion Gap 10 (4-12) mmol/L BUN 17 (7-17) mg/dL Creatinine 0.82 (0.7-1.0) mg/dL Estim Creat Clear Calc 64 ml/min Estimated GFR > 60 (59 - ) Glucose 100 (65-110) mg/dL Calcium 9.8 (8.4-10.2) mg/dL Total Bilirubin 0.7 (0.2-1.3) mg/dL AST 35 (14-36) U/L ALT 24 (6-35) U/L Alkaline Phosphatase 112 (38-126) U/L Total Protein 8.5 H (6.3-8.2) g/dL Albumin 4.7 (3.5-5.1) g/dL Imaging Data Radiologist's impression: ITS Impressions Face CT 04/30/25 13:59 IMPRESSION: 1. Small periapical lucencies at both the left and right posterior most mandibular molars without evident associated cortical erosion or subperiosteal abscesses. 2. Likely reactive bilateral mild submandibular and jugular chain lymphadenopathy. Discharge Plan Discharge Clinical Impression: Dental infection, Trismus Patient Disposition: Home Condition: Stable Instructions: Antibiotic Form, Temporomandibular Disorder (ED) Additional Instructions: Continue your antibiotics as directed. Tylenol for pain control. Flexeril for muscle spasm. Have close follow-up with your dentist as scheduled. Patient Language: Nigerien Prescriptions: New cyclobenzaprine 10 mg tablet 10 mg PO BID PRN (Reason: muscle spasm) Qty: 14 0RF No Action cholecalciferol (vitamin D3) 25 mcg (1,000 unit) capsule 1,000 unit PO DAILY ascorbic acid (vitamin C) 500 mg capsule 500 mg PO DAILY potassium 99 mg tablet 99 mg PO DAILY multivitamin Tablet 1 tablet PO DAILY magnesium 250 mg tablet 500 mg PO DAILY vitamin A 2,400 mcg capsule 2,400 mcg PO DAILY albuterol sulfate 90 mcg/actuation HFA aerosol inhaler 2 inh INHALATION Q4-6H PRN (Reason: shortness of breath or wheezing) 90 Days Qty: 25.5 3RF fluticasone furoate-vilanterol [Breo Ellipta] 200-25 mcg/dose blister with device 1 inh inhalation Q24H Qty: 180 3RF Rx Instructions: Rinse and spit rabeprazole [AcipHex] 20 mg tablet,delayed release (DR/EC) 20 mg PO DAILY Qty: 90 3RF rizatriptan [Maxalt-EXECUTIVE CHEF] 10 mg tablet,disintegrating See Rx Instructions PO .COMPLEX Qty: 30 3RF Rx Instructions: take 1 tab at onset of headache; if no relief may repeat 1 tab after at least 2 hrs; max = 3 tabs/24 hr PO montelukast 10 mg tablet See Rx Instructions .ROUTE .COMPLEX Qty: 90 3RF Dose Instruction: TAKE ONE TABLET BY MOUTH EVERY DAY AT BEDTIME Rx Instructions: TAKE ONE TABLET BY MOUTH EVERY DAY AT BEDTIME meloxicam 15 mg tablet 15 mg PO DAILY PRN (Reason: pain) Qty: 90 3RF zolpidem [Ambien] 10 mg tablet 10 mg PO QHS Qty: 90 1RF azithromycin 250 mg tablet See Rx Instructions PO .COMPLEX Qty: 6 0RF Rx Instructions: For 250 mg dose pack: take 500 mg today (day 1), then 250 mg for 4 days (days 2-5) PO prednisone 10 mg tablet 10 mg PO . q.a.m. Qty: 5 0RF Rx Instructions: hold meloxicam while on prednisone aspirin [Adult Low Dose Aspirin] 81 mg tablet,delayed release (DR/EC) 81 mg PO DAILY lysine [L-Lysine] 500 mg tablet 500 mg PO DAILY valacyclovir 1 gram tablet 2,000 mg PO BID PRN (Reason: fever blister) Qty: 40 3RF Rx Instructions: take 2 tablets twice daily for 1 day at onset of fever blister PreserVision AREDS-2 250-90-40-1 mg capsule 1 tablet PO BID Qty: 180 3RF doxycycline hyclate 100 mg tablet 100 mg PO BID Qty: 20 0RF fenofibrate 160 mg tablet 160 mg PO DAILY Qty: 90 3RF meclizine 25 mg tablet 25 mg PO TID PRN (Reason: dizziness) Qty: 90 3RF paroxetine HCl [Paxil] 30 mg tablet 30 mg PO . q.h.s. Qty: 90 3RF Follow-up/Referrals: Starr Quiroz APRN [Primary Care Provider, Family Practice] Stand Alone Forms: Work/School Release IP
[2025-04-30 12:47] LABS: Alanine Aminotransferase 24 U/L (6-35); Albumin Level 4.7 g/dL (3.5-5.1); Alkaline Phosphatase 112 U/L (38-126); Anion Gap 10 mmol/L (4-12); Aspartate Amino Transferase 35 U/L (14-36); Bilirubin,Total 0.7 mg/dL (0.2-1.3); Blood Urea Nitrogen 17 mg/dL (7-17); Calcium 9.8 mg/dL (8.4-10.2); Carbon Dioxide 24 mmol/L (22-30); Chloride 106 mmol/L (98-107); Estimated CRCL calculation 64 ml/min; Estimated Glomerular Filt Rate > 60; Glucose 100 mg/dL (65-110); Potassium 4.9 mmol/L (3.4-5.0); Sodium 140 mmol/L (137-145); Total Protein 8.5 g/dL (6.3-8.2)
[2025-04-30 14:38] VITALS: BP 132/88; PULSE 90; RESP 18; O2SAT 99
== END 2025-04-30 14:40 | disposition home or self-care (01) ==
PROVIDERS: Emergency Provider Emergency Medicine; PCP Nurse Practitioner Family
DX: K04.7 Periapical abscess without sinus (principal); R25.2 Cramp and spasm; J45.909 Unspecified asthma, uncomplicated; J32.9 Chronic sinusitis, unspecified; F41.9 Anxiety disorder, unspecified; Z86.73 Personal history of transient ischemic attack (TIA), and cerebral infarction without residual deficits; Z87.891 Personal history of nicotine dependence; Z86.0100 Personal history of colon polyps, unspecified; Z86.16 Personal history of COVID-19; Z90.49 Acquired absence of other specified parts of digestive tract; Z90.711 Acquired absence of uterus with remaining cervical stump
CPT/HCPCS: 36415; 70487; 80053; 85025; 99283; 99284; Q9967